=== PATIENT | male | born 1965 | race Caucasian/White ===

== ENCOUNTER 2018-01-09 09:32 | Emergency (ER) | payer OTHER ==
[2018-01-09 09:44] VITALS: BP 156/92; PULSE 66; TEMP 98.6; BMI 26.6
--- NOTE | 2018-01-09 10:46 | PDOC ---
History of Present Illness - General Chief Complaint: Injury Stated Complaint: HEAD INJURY Time Seen by Provider: 01/09/18 10:06 - History of Present Illness Initial Comments: 01/09/18 10:50 Mr. Looney is a 52 yo male w/ pmh of HTN who presents for evaluation after being hit in the forehead by the handle of some equipment earlier today. Denies any dizziness or LOC but presented as he is bleeding significantly and believes he may need stitches. Currently has a 5/10 headache. The patient denies chest pain, shortness of breath, and dizziness. Denies fever , chills, nausea, vomit, diarrhea and constipation. Denies dysuria, frequency, urgency and hematuria. Allergies: Oxycodone Past History - Past Medical History Allergies/Adverse Reactions: Allergies Allergy/AdvReac Type Severity Reaction Status Date / Time oxycodone AdvReac Severe Vomiting Verified 01/09/18 09:42 Home Medications: Ambulatory Orders Cephalexin [Keflex] 500 mg PO BID #6 capsule 01/09/18 COPD: No HTN: Yes (not on meds) - Immunization History Immunization Up to Date: Yes - Suicide/Smoking/Psychosocial Hx Smoking History: Never smoked Review of Systems - Review of Systems Comments:: 01/09/18 10:54 GENERAL/CONSTITUTIONAL: No fever or chills. No weakness. HEAD, EYES, EARS, NOSE AND THROAT: No change in vision. No ear pain or discharge. No sore throat. CARDIOVASCULAR: No chest pain or shortness of breath RESPIRATORY: No cough, wheezing, or hemoptysis. GASTROINTESTINAL: No nausea, vomiting, diarrhea or constipation. GENITOURINARY: No dysuria, frequency, or change in urination. MUSCULOSKELETAL: No joint or muscle swelling or pain. No neck or back pain. SKIN: No rash NEUROLOGIC: +Headache as described. No vertigo, loss of consciousness, or change in strength/sensation. ENDOCRINE: No increased thirst. No abnormal weight change HEMATOLOGIC/LYMPHATIC: No anemia, easy bleeding, or history of blood clots. ALLERGIC/IMMUNOLOGIC: No hives or skin allergy. *Physical Exam - Vital Signs Last Vital Signs Temp Pulse Resp BP Pulse Ox 98.6 F 66 18 156/92 98 01/09/18 09:41 01/09/18 09:41 01/09/18 09:41 01/09/18 09:41 01/09/18 09:41 - Physical Exam Comments: 01/09/18 10:54 GENERAL: Awake, alert, and fully oriented, in no acute distress HEAD: +Midline approx. 3cm laceration between eyebrows with muscle exposure. Normocephalic EYES: PERRLA, EOMI, sclera anicteric, conjunctiva clear ENT: Auricles normal inspection, hearing grossly normal, nares patent, oropharynx clear without exudates. Moist mucosa NECK: Normal ROM, supple, no lymphadenopathy, JVD, or masses LUNGS: No distress, speaks full sentences, clear to auscultation bilaterally HEART: Regular rate and rhythm, normal S1 and S2, no murmurs, rubs or gallops, peripheral pulses normal and equal bilaterally. ABDOMEN: Soft, nontender, normoactive bowel sounds. No guarding, no rebound. No masses EXTREMITIES: Normal inspection, Normal range of motion, no edema. No clubbing or cyanosis. NEUROLOGICAL: Cranial nerves II through XII grossly intact. Normal speech, normal gait, no focal sensorimotor deficits SKIN: Warm, Dry, normal turgor, no rashes or lesions noted. Procedures - Laceration/Wound Repair Upper Medial Face Wound Length: 2.6 to 5.0 cm Wound Explored: clean Wound's Depth, Shape: into muscle Irrigated w/ Saline: Yes Betadine Prep: No Anesthesia: 1% Lidocaine Amount of Anesthetic (ccs): 4 Wound Debrided: minimal Wound Repaired With: Sutures Suture Size/Type: 5:0 Number of Sutures: 5 Sterile Dressing Applied: Yes Medical Decision Making - Medical Decision Making 01/09/18 11:29 Mr. Looney is a 52 yo male w/ pmh as described who presents for evaluation of laceration midline between eyebrows approximately 3cm. Laceration repaired as above with good closure. Instructed patient to f/u with PCP or back here for evaluation in 5-7 days. Patient started on prophylactic keflex in ER and Rx sent to pharmacy. Discharging to home. *DC/Admit/Observation/Transfer Diagnosis at time of Disposition: Laceration - Discharge Dispostion Disposition: HOME - Prescriptions Prescriptions: Cephalexin [Keflex] 500 mg PO BID #6 capsule - Referrals - Patient Instructions Printed Discharge Instructions: DI for Suture Removal Additional Instructions: Please follow-up with primary care provider or back in ER in 5-7 days for suture removal. Return if any fever, chills, pain at site not controllable with over the counter pain medications, altered mental status, or other concerning symptoms. - Post Discharge Activity
[2018-01-09] MEDS ORDERED: ACETAMINOPHEN 500 MG TABLET (FP) PO ONE (10:56)
[2018-01-09] MEDS ORDERED: ACETAMINOPHEN 325 MG TABLET (FP) ONE (11:04)
--- NOTE | 2018-01-09 11:04 | PDOC ---
Attending Attestation - Resident Resident Name: [email or web address] - ED Attending Attestation I have performed the following: I have examined & evaluated the patient, The case was reviewed & discussed with the resident, I agree w/resident's findings & plan - HPI HPI: 01/09/18 11:02 Healthy 52-year-old male presents with forehead/left eyebrow laceration after object struck him in the head. Lenorah a little lightheaded but no actual loss of consciousness, no subsequent injuries, no generalized headache/vision change/ speech change/focal deficits/nausea/vomiting. Not on blood thinners, unknown last tetanus, feels well now. - Physicial Exam PE: 01/09/18 11:03 Vital signs normal Trauma exam is unremarkable except for 4 cm vertical laceration through dermis with some muscle exposure but no muscle injury, located along the medial left eyebrow. No eyelid involvement, motor function is normal, no foreign body. No other injuries, C-spine normal, neurologically intact - Medical Decision Making 01/09/18 11:04 52-year-old male with vertical left face/forehead laceration after struck by object, no other red flags on history or physical exam. Neurologically intact, trauma exam is otherwise unremarkable. Update tetanus Laceration repair per resident We'll prophylax with antibiotics Return precautions discussed
[2018-01-09] MEDS ORDERED: DIPHTH,PERTUSS(ACELL),TET 0.5 ML DISP.SYRIN IM ONE (11:05)
[2018-01-09] MEDS ORDERED: CEPHALEXIN MONOHYDRATE 500 MG CAPSULE (UD) PO ONE (11:26)
[2018-01-09] MEDS ORDERED: CEPHALEXIN MONOHYDRATE 500 MG CAPSULE (UD) ONE ×2 (11:37→11:41)
== END 2018-01-09 11:56 | disposition home or self-care (01) ==
LOC: JERFT 09:32 → JER 09:32
PROC: 3E0234Z Introduction of Serum, Toxoid and Vaccine into Muscle, Percutaneous Approach (ICD-10-PCS; principal; 2018-01-09)
PROC: 0JQ10ZZ Repair Face Subcutaneous Tissue and Fascia, Open Approach (ICD-10-PCS; 2018-01-09)
DX: S01.81XA Laceration without foreign body of other part of head, initial encounter (principal); W22.8XXA Striking against or struck by other objects, initial encounter; Y93.89 Activity, other specified; Y92.89 Other specified places as the place of occurrence of the external cause; Y99.0 Civilian activity done for income or pay; I10 Essential (primary) hypertension
CPT/HCPCS: 90715; 99282-25